=== PATIENT | female | born 1990 | race Two or more races ===

== ENCOUNTER 2018-08-14 02:07 | Emergency (ER) | payer SELFPAY ==
[2018-08-14 02:07] VITALS: BMI 29.2
[2018-08-14 02:27] VITALS: RESP 18; TEMP 98.2; O2SAT 98
--- NOTE | 2018-08-14 02:57 | C.PDOC ---
History Of Present Illness 28 year old female presents to the ED c/o sore throat, cold like symptoms for the past week. Patient reports having too much mucous and feeling like she is chocking due to it. Patient reports that only water helps with her symptoms. Patient denies fever, chills, nausea, vomit, recent travel, sick contacts. Time Seen by Provider: 08/14/18 02:32 Chief Complaint (Nursing): ENT Problem History Per: Patient History/Exam Limitations: no limitations Onset/Duration Of Symptoms: Days Current Symptoms Are (Timing): Still Present Location Of Pain: Throat, Sinus/es Associated Symptoms: Sore Throat, Cough, Sputum, Nasal Congestion. denies: Fever Ear Symptoms: Bilateral: None Recent travel outside of the [place]: No Additional History Per: Patient Past Medical History Reviewed: Historical Data, Nursing Documentation, Vital Signs Vital Signs: Last Vital Signs Temp 98.2 F 08/14/18 02:19 Pulse 90 08/14/18 02:19 Resp 18 08/14/18 02:19 BP 154/98 H 08/14/18 02:19 Pulse Ox 98 08/14/18 02:19 - Medical History PMH: No Chronic Diseases Denies: Depression, Diabetes, HTN Surgical History: No Surg Hx - [facility] Procedures DELIVERY OF PRODUCTS OF CONCEPTION, EXTERNAL APPROACH (07/25/18) EPISIOTOMY (06/25/15) MANUAL ASSIST DELIV NEC (06/25/15) MONITORING OF POC, CARDIAC RATE, ELECTROFORMER APPROACH (07/25/18) REPAIR OB LACERATION NEC (06/25/15) REPAIR PERINEUM SKIN, EXTERNAL APPROACH (10/13/16) Family History: States: Unknown Family Hx - Social History Hx Alcohol Use: No Hx Substance Use: No - Immunization History Hx Tetanus Toxoid Vaccination: No Review Of Systems Constitutional: Negative for: Fever, Chills ENT: Positive for: Nose Congestion, Throat Pain Cardiovascular: Negative for: Chest Pain Respiratory: Negative for: Shortness of Breath Gastrointestinal: Negative for: Nausea, Vomiting Skin: Negative for: Rash Neurological: Negative for: Weakness, Numbness Physical Exam - Physical Exam Appears: Non-toxic, No Acute Distress Skin: Normal Color, Warm, Dry Head: Atraumatic, Normacephalic Eye(s): bilateral: Normal Inspection Ear(s): Bilateral: Normal Nose: Other (enlarged nasal turbinates) Oral Mucosa: Moist Throat: Normal, No Erythema, No Exudate Neck: Normal ROM, Supple Chest: Symmetrical Cardiovascular: Rhythm Regular Respiratory: Normal Breath Sounds, No Rales, No Rhonchi, No Wheezing Extremity: Normal ROM, No Tenderness, No Swelling Neurological/Psych: Oriented x3, Normal Speech, Normal Cognition Gait: Steady ED Course And Treatment O2 Sat by Pulse Oximetry: 98 (ON RA) Pulse Ox Interpretation: Normal Disposition Counseled Patient/Family Regarding: Diagnosis, Need For Followup - Disposition Referrals: [facility] [Outside] Disposition: HOME/ ROUTINE Disposition Time: 02:49 Condition: STABLE Additional Instructions: Please follow up with PMD Take medications as directed Drink fluids Return to ER if worse Prescriptions: Cetirizine HCl [Zyrtec] 10 mg PO DAILY #14 capsule Mometasone Furoate [Nasonex] 2 spray NS DAILY #1 bottle Instructions: Seasonal Allergies (DC) Forms: [employer] (Maltese) - Clinical Impression Clinical Impression: Allergic rhinitis - PA / OPERATIONS MANAGER STATION / Resident Statement MD/DO has reviewed & agrees with the documentation as recorded. - Scribe Statement The provider has reviewed the documentation as recorded by the Scribe Samuel Herrera All medical record entries made by the Scribe were at my direction and personally dictated by me. I have reviewed the chart and agree that the record accurately reflects my personal performance of the history, physical exam, medical decision making, and the department course for this patient. I have also personally directed, reviewed, and agree with the discharge instructions and disposition.
[2018-08-14 03:06] VITALS: BP 111/73; PULSE 82
== END 2018-08-14 03:11 | disposition home or self-care (01) ==
LOC: C.ER 02:07
DX: J30.9 Allergic rhinitis, unspecified (principal)